=== PATIENT | male | born 1935 | race Caucasian/White ===

== ENCOUNTER 2017-08-13 11:14 | Emergency (ER) | payer MEDICARE, BC ==
[~2017-08-13] VITALS: Ht 182.9 cm; Wt 81.7 kg
[2017-08-13] MEDS ORDERED: LUMIGAN2.5 M1 OPHTHALMIC (11:20)
[2017-08-13] MEDS ORDERED: LISINOPRIL-HCT1 EAC2 PO (11:21)
[2017-08-13 12:14] VITALS: BP 125/69
== END 2017-08-13 12:15 | disposition home or self-care (01) ==
LOC: M.ERS 11:14
DX: S51.811A Laceration without foreign body of right forearm, initial encounter (principal); S41.111A Laceration without foreign body of right upper arm, initial encounter; Z88.8 Allergy status to other drugs, medicaments and biological substances; W11.XXXA Fall on and from ladder, initial encounter; Y93.89 Activity, other specified; Y92.89 Other specified places as the place of occurrence of the external cause; Y99.8 Other external cause status